=== PATIENT | female | born 1995 | race Caucasian/White ===

== ENCOUNTER 2017-02-04 22:12 | Emergency (ER) | payer OTHER ==
[2017-02-04 22:48] LABS: BASOPHILS # (AUTO) 0.1 10^3/uL (0.0-0.1); BASOPHILS % (AUTO) 0.8 %; EOSINOPHILS # (AUTO) 0.1 10^3/uL (0.0-0.7); EOSINOPHILS % (AUTO) 1.6 %; HCT - HEMATOCRIT 37.4 % (37.0-47.0); HGB - HEMOGLOBIN 13.1 g/dL (12.0-16.0); LYMPHOCYTES # (AUTO) 2.9 10^3/uL (1.5-3.5); LYMPHOCYTES % (AUTO) 35.6 %; MEAN CORPUSCULAR HGB CONC 34.9 g/dL (32.0-36.0); MEAN PLATELET VOLUME 8.2 fL (7.9-10.8); MONOCYTES # (AUTO) 0.6 10^3/uL (0.0-1.0); MONOCYTES % (AUTO) 7.1 %; NEUTROPHILS # (AUTO) 4.6 10^3/uL (1.5-6.6); NEUTROPHILS % (AUTO) 54.9 %; NUCLEATED RED BLOOD CELLS AUTO 0.1 /100WBC; RED BLOOD COUNT 4.35 10^6/uL (4.20-5.40); RED CELL DISTRIBUTION WIDTH 12.7 % (12.0-15.0); UNCORRECTED WHITE BLOOD COUNT 8.3 x10^3/uL; WHITE BLOOD COUNT 8.3 x10^3/uL (4.8-10.8)
[2017-02-04 23:00] LABS: ALBUMIN/GLOBULIN RATIO 1.6 (1.0-2.2); BILIRUBIN,TOTAL 0.5 mg/dL (0.2-1.0); CALCIUM 9.5 mg/dL (8.5-10.3); CREATININE 0.5 mg/dL (0.4-1.0); POTASSIUM 3.8 mmol/L (3.5-5.0); TOTAL PROTEIN 7.5 g/dL (6.7-8.2)
[2017-02-05 00:08] LABS: BILIRUBIN,URINE NEGATIVE (NEGATIVE); PH,URINE 6.5 PH (5.0-7.5)
[2017-02-05 00:09] VITALS: BP 121/68
[2017-02-05 00:10] LABS: UA w/ MICROSCOPIC CHARGE YES
[2017-02-05 00:11] LABS: UR CULTURE IF IND NOT INDICATED; WBC,URINE 0-3 /HPF (0-5)
--- NOTE | 2017-02-05 00:12 | Ultrasound Report ---
EXAM: FIRST TRIMESTER OBSTETRIC ULTRASOUND (Less than 11 weeks) EXAM DATE: 02/04/2017 11:38 PM. CLINICAL HISTORY: Vaginal bleeding, . LMP: Unknown. COMPARISONS: None. TECHNIQUE: Transabdominal ultrasound examination with static image documentation. CLINICAL DATES: LMP: 11/28/2016. Estimated gestational age: 9 weeks 5 days. Estimated due date: 09/04/2017. ASSESSMENT: Gestational Sac: Intrauterine gestational sac is not visualized. MATERNAL STRUCTURES: Uterus: Uterus is anteverted and anteflexed measuring 14.9 x 4.1 x 4.4 cm. Cervix: Cervix contains heterogeneous complex echogenic material measuring 5.8 x 4.6 x 2.6 cm. Endometrium: Heterogeneously thickened, measuring 17.2 mm. There is some internal vascularity. Right Ovary: Normal as visualized, without significant abnormality, measuring 3.0 x 2.9 x 2.4 cm. Left Ovary: Left ovary measures 1.9 x 1.6 11.2 cm without evident abnormality. Free Fluid: Trace fluid within physiologic limits. Other: None. IMPRESSION: 1. Intrauterine gestational sac is not visualized. No definite suspicious adnexal lesion. 2. Complex material within the cervix measuring 5.8 x 4.6 x 2.6 cm. This may represent in pr ogress. Correlation with speculum examination would be helpful. 3. Heterogeneous thickened endometrium with vascularity is nonspecific with possibility of retained p roducts of conception. One possible management option is follow-up with beta hCG if warranted. ADAIR The critical result notification system was initiated by Dr. Shweta Trujillo at 00:04 hrs on 02/05/17. The above critical findings were discussed with Dr. Perez by Dr. Shweta Trujillo at 00:08 hrs on 02/05/17. Referring Provider Line: [phone] SITE ID: [id number]
--- NOTE | 2017-02-05 00:30 | ED Physician Documentation ---
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 Patient states that today she had cramping and " a lot" of bleeding. Patient had been spotting but the bleeding increased significantly today so she came in for evaluation. Patient has not had an ultrasound to confirm location of the pregancy. Review of Systems Constitutional: denies: Fever, Chills Ears: denies: Ear pain, Drainage/discharge Nose: denies: Congestion Throat: denies: Sore throat Cardiac: denies: Chest pain / pressure Respiratory: denies: Cough GI: reports: Abdominal Pain. denies: Nausea, Vomiting, Constipation, Diarrhea : reports: Vaginal bleeding. denies: Dysuria Musculoskeletal: denies: Neck pain, Back pain Neurologic: denies: Syncope Immunocompromised: denies: Immunocompromised PD PAST MEDICAL HISTORY - Past Medical History Past Medical History: No - Past Surgical History Past Surgical History: Yes - Present Medications Home Medications: Ambulatory Orders Medication Instructions Recorded Confirmed No Known Home Medications [No 02/04/17 02/04/17 Known Home Medications] - Allergies Allergies/Adverse Reactions: Allergies Allergy/AdvReac Type Severity Reaction Status Date / Time No Known Drug Allergies Allergy Verified 02/04/17 22:19 - Social History Does the pt smoke?: No Smoking Status: Never smoker Does the pt drink ETOH?: No Does the pt have substance abuse?: No - Immunizations Immunizations are current?: Yes PD ED PE NORMAL - Vitals Vital signs reviewed: Yes - General General: Alert and oriented X 3, Well developed/nourished - HEENT HEENT: Atraumatic, PERRL - Neck Neck: Supple, no meningeal sign - Cardiac Cardiac: RRR, No murmur - Respiratory Respiratory: No respiratory distress - Abdomen Abdomen: Soft, Non distended - Female Female : Deferred - Derm Derm: Normal color, Warm and dry, No rash - Extremities Extremities: No deformity - Neuro Neuro: Alert and oriented X 3, No motor deficit, No sensory deficit, Normal speech - Psych Psych: Normal mood, Normal affect Results - Vitals Vitals: Vital Signs - 24 hr 02/04/17 02/05/17 22:18 00:08 Temperature 36.5 C Heart Rate 100 79 Respiratory 16 17 Rate Blood Pressure 131/89 H 121/68 O2 Saturation 100 99 Oxygen O2 Source Room air - Labs Labs: Laboratory Tests 02/04/17 02/04/17 02/04/17 22:38 22:38 22:38 WBC 8.3 RBC 4.35 Hgb 13.1 Hct 37.4 MCV 86.0 MCH 30.0 MCHC 34.9 RDW 12.7 Plt Count 268 MPV 8.2 Neut # 4.6 Lymph # 2.9 [place] # 0.6 Eos # 0.1 Baso # 0.1 Absolute Nucleated RBC 0.01 Nucleated RBCs 0.1 Sodium 136 Potassium 3.8 Chloride 104 Carbon Dioxide 25 Anion Gap 7.0 BUN 11 Creatinine 0.5 Estimated GFR (MDRD) 159 Glucose 106 H Calcium 9.5 Total Bilirubin 0.5 AST 23 ALT 18 Alkaline Phosphatase 43 Total Protein 7.5 Albumin 4.6 Globulin 2.9 Albumin/Globulin Ratio 1.6 Lipase 30 HCG, Quant 4398.00 Urine Color Urine Clarity Urine pH Ur Specific [place] Urine Protein Urine Glucose (UA) Urine Ketones Urine Occult Blood Urine Nitrite Urine Bilirubin Urine Urobilinogen Ur Leukocyte Esterase Urine RBC Urine WBC Ur Squamous Epith Cells Urine Bacteria Ur Microscopic Review Urine Culture Comments Blood Type 02/04/17 02/04/17 22:38 23:35 WBC RBC Hgb Hct MCV MCH MCHC RDW Plt Count MPV Neut # Lymph # [place] # Eos # Baso # Absolute Nucleated RBC Nucleated RBCs Sodium Potassium Chloride Carbon Dioxide Anion Gap BUN Creatinine Estimated GFR (MDRD) Glucose Calcium Total Bilirubin AST ALT Alkaline Phosphatase Total Protein Albumin Globulin Albumin/Globulin Ratio Lipase HCG, Quant Urine Color RED/BLOODY Urine Clarity SL. CLOUDY Urine pH 6.5 Ur Specific [place] 1.020 Urine Protein 30 H Urine Glucose (UA) NEGATIVE Urine Ketones NEGATIVE Urine Occult Blood LARGE H Urine Nitrite NEGATIVE Urine Bilirubin NEGATIVE Urine Urobilinogen 0.2 (NORMAL) Ur Leukocyte Esterase NEGATIVE Urine RBC TNTC H Urine WBC 0-3 Ur Squamous Epith Cells RARE Squamous Urine Bacteria Rare Ur Microscopic Review INDICATED Urine Culture Comments NOT INDICATED Blood Type A POSITIVE - Rads (name of study) pelvic ultrasound Radiology: Final report received (complex material in cervix, no adenexal lesion ) PD MEDICAL DECISION MAKING - ED course Complexity details: reviewed old records, reviewed results, re-evaluated patient , considered differential, d/w patient, d/w family ED course: Patient was seen and examined at bedside. IV access was gained, labs were drawn. urine was collected. imaging was ordered. When the imaging was complete the results were reviewed. Patient was actively having a miscarriage. Patient's hemoglobin and vital signs were stable. Patient had a follow up appointment in 2 days and was appropriate for discharge with close outpatient follow up. Patient was given detailed discharge and return instructions. Departure - Departure Disposition: 01 Home, Self Care Clinical Impression: Incomplete miscarriage Condition: Good Instructions: ED Miscarriage Incom, Miscarriage Dc Follow-Up: primary,ob [Other] - Within 3 Days Comments: Your symptoms today are being caused by a miscarriage. You are currently passing the products of conception and this will likely go on for the next few days. You can take motrin or tylenol as needed for cramping. You should go to your appointment with your ob on thursday to make sure it is completed. You should return to the emergency department for uncontrollable bleeding, dizziness , syncope new, worsening or uncontrollable symptoms. Discharge Date/Time: 02/05/17 00:42
== END 2017-02-05 00:42 | disposition home or self-care (01) ==
LOC: ED 22:12
DX: O03.4 Incomplete spontaneous abortion without complication (principal)
CPT/HCPCS: 36415; 76801; 80053; 81001; 81003; 83690; 84702; 85025; 86900; 86901; 87086; 99283; 99284

== ENCOUNTER 2017-10-13 11:19 | Emergency (ER) | payer OTHER ==
[2017-10-13 11:46] LABS: BILIRUBIN,URINE NEGATIVE (NEGATIVE); GLUCOSE, URINE (UA) NEGATIVE (NEGATIVE); KETONES,URINE (UA) NEGATIVE (NEGATIVE); LEUKOCYTE ESTERASE, URINE NEGATIVE (NEGATIVE); NITRITE,URINE NEGATIVE (NEGATIVE); OCCULT BLOOD,URINE NEGATIVE (NEGATIVE); PROTEIN,URINE NEGATIVE (NEGATIVE); UROBILINOGEN,URINE 0.2 (NORMAL) E.U./dL (NORMAL)
[2017-10-13 11:50] LABS: CLARITY,URINE CLEAR (CLEAR); HCG UR QUAL NEGATIVE
--- NOTE | 2017-10-13 12:20 | ED Physician Documentation ---
PD HPI SKIN - Stated complaint Stated Complaint: DIZZY - Chief complaint Chief Complaint: General - History obtained from History obtained from: Patient - History of Present Illness Timing - onset: Today (she had felt a small sharp feeling in finger yesterday when moving boxes in their spare room (recently moved). No redness at the time. Today noted a couple of small red dots on finger with mild swelling. Thought it might be a spider bite or insect. Started feeling lightheaded after noticing the stevenson and this feeling lasted for several minutes. Not feeling lightheaded now. No general rash, dyspnea, feeling of swelling in throat or chest.) Timing - details: Gradual onset (noted redness of the finger today. Had abrupt feeling of lightheaded that is resolved.) Location: RUE (side tip of right index finger.) Associated symptoms: No: Fever, Myalgias, Joint pain, Facial swelling, Dyspnea Contributing factors: Insect bite /sting (she thinks possibly, when lifting boxes yesterday (moving boxes in spare room).) Similar symptoms before: Has not had sx before Recently seen: Not recently seen Review of Systems Constitutional: denies: Fever, Chills, Myalgias Cardiac: denies: Chest pain / pressure Respiratory: denies: Dyspnea, Cough, Wheezing GI: denies: Nausea, Vomiting : denies: Irregular menses, Missed period Skin: denies: Rash (not general, just with some redness of finger tip and 2 red dots.) PD PAST MEDICAL HISTORY - Past Medical History Past Medical History: No Cardiovascular: None Neuro: None Endocrine/Autoimmune: None - Past Surgical History Past Surgical History: Yes /REAL ESTATE PARALEGAL: Dilation and currettage - Present Medications Home Medications: Ambulatory Orders Medication Instructions Recorded Confirmed Norethindrone-E.estradiol-Iron 1 tab PO DAILY 10/13/17 [Microgestin Fe 1-20 Tablet] - Allergies Allergies/Adverse Reactions: Allergies Allergy/AdvReac Type Severity Reaction Status Date / Time No Known Drug Allergies Allergy Verified 10/13/17 11:24 - Social History Does the pt smoke?: No Smoking Status: Never smoker Does the pt drink ETOH?: No Does the pt have substance abuse?: No - Immunizations Immunizations are current?: Yes PD ED PE NORMAL - Vitals Vital signs reviewed: Yes - General General: Alert and oriented X 3, No acute distress, Well developed/nourished - HEENT HEENT: Pharynx benign - Neck Neck: Supple, no meningeal sign, No adenopathy - Cardiac Cardiac: RRR, No murmur, No rub - Respiratory Respiratory: No respiratory distress, Clear bilaterally - Abdomen Abdomen: Soft, Non tender - Derm Derm: Normal color, Warm and dry, Other (right index finger tip on side with 2 red dots and mild redness around. No red streaking. Mildly tender. ) - Neuro Neuro: Alert and oriented X 3, technical inspector 2-12 intact, No motor deficit, No sensory deficit, Normal speech Results - Vitals Vitals: Oxygen O2 Source Room air - Labs Labs: Laboratory Tests 10/13/17 10/13/17 11:40 11:40 Urine Color YELLOW Urine Clarity CLEAR Urine pH 8.0 H Ur Specific [place] 1.015 1.015 Urine Protein NEGATIVE Urine Glucose (UA) NEGATIVE Urine Ketones NEGATIVE Urine Occult Blood NEGATIVE Urine Nitrite NEGATIVE Urine Bilirubin NEGATIVE Urine Urobilinogen 0.2 (NORMAL) Ur Leukocyte Esterase NEGATIVE Ur Microscopic Review NOT INDICATED Urine Culture Comments NOT INDICATED Urine HCG, Qual NEGATIVE PD MEDICAL DECISION MAKING - ED course Complexity details: considered differential (the red spots on the finger could represent spider bite but may also be inflammation from scrape or plant, etc. Does not appear infectious per se, but would see if progresses. Her lightheadedness might be reaction or venom effect, but seems likely more vasovagal or psychogenic. ), d/w patient Departure - Departure Disposition: 01 Home, Self Care Clinical Impression: Rash and nonspecific skin eruption, Light-headed feeling Condition: Stable Record reviewed to determine appropriate education?: Yes Instructions: ED Bite Sting Insect Local Allergic React Follow-Up: DIEGO Foreman [Provider Group] Comments: The stevenson on the finger may be an insect bite. Consider possible spider and if so he may get a local reaction of redness and inflammation. I presume the lightheadedness is related to it. You are not having a general allergic reaction and so I would not expect any dangerous symptoms. Drink lots of fluids and see how you do with this skin rash over the next few days. Discharge Date/Time: 10/13/17 12:34
[2017-10-13 12:31] VITALS: BP 116/69
== END 2017-10-13 12:34 | disposition home or self-care (01) ==
LOC: ED 11:19
DX: R21 Rash and other nonspecific skin eruption (principal); R42 Dizziness and giddiness
CPT/HCPCS: 81001; 81003; 81025; 87086; 99283

== ENCOUNTER 2019-08-28 01:02 | Emergency (ER) | payer OTHER ==
--- NOTE | 2019-08-28 01:33 | ED Physician Documentation ---
History of Present Illness - Stated complaint Stated Complaint: BLEEDING - Chief complaint Chief Complaint: Abd Pain - Additonal information Additional information: This is a G4, female 18 weeks with a confirmed intrauterine from past ultrasound, who follows with Dr. Brar at the [facility], who presents with vaginal bleeding. Patient states that she has had some mild cramping throughout her , and she did have some mild cramping tonight as well, but no increased abdominal pain from her baseline. She noticed a small amount of blood when she went to the bathroom, she states is just enough to coat the inside of her underwear. This was concerning to her given that she has had a past miscarriage, so she sought evaluation tonight. She denies fever or dysuria. She does not know her blood type. Review of Systems Constitutional: denies: Fever Cardiac: denies: Chest pain / pressure Respiratory: denies: Dyspnea : reports: Vaginal bleeding. 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 - Present Medications Home Medications: Ambulatory Orders Medication Instructions Recorded Confirmed Norethindrone-E.estradiol-Iron 1 tab PO DAILY 10/13/17 08/28/19 [Microgestin Fe 1-20 Tablet] - Allergies Allergies/Adverse Reactions: Allergies Allergy/AdvReac Type Severity Reaction Status Date / Time No Known Drug Allergies Allergy Verified 08/28/19 01:11 - Social History Does the pt smoke?: No Smoking Status: Never smoker Does the pt drink ETOH?: No Does the pt have substance abuse?: No - Immunizations Immunizations are current?: Yes - POLST Patient has POLST: No PD ED PE NORMAL - Vitals Vital signs reviewed: Yes - General General: Alert and oriented X 3, No acute distress - HEENT HEENT: PERRL - Neck Neck: Supple, no meningeal sign - Cardiac Cardiac: RRR, No murmur - Respiratory Respiratory: Clear bilaterally - Abdomen Abdomen: Normal bowel sounds, Soft, Non tender, Other (Gravid, fundal height below umbilicus) - Derm Derm: Warm and dry - Extremities Extremities: No deformity - Neuro Neuro: Alert and oriented X 3 - Psych Psych: Normal mood, Normal affect Results - Vitals Vitals: Vital Signs - 24 hr 08/28/19 08/28/19 08/28/19 01:05 03:26 03:41 Temperature 36.8 C 36.8 C Heart Rate 93 85 92 Respiratory 16 18 16 Rate Blood Pressure 124/77 121/71 117/62 O2 Saturation 100 98 99 Oxygen O2 Source Room air - Labs Labs: Laboratory Tests 08/28/19 08/28/19 08/28/19 01:20 01:45 01:45 WBC 10.9 H RBC 3.94 L Hgb 11.8 L Hct 34.2 L MCV 86.8 MCH 29.9 MCHC 34.5 RDW 12.9 Plt Count 256 MPV 9.5 Neut # (Auto) 7.4 H Lymph # (Auto) 2.7 [place] # (Auto) 0.6 Eos # (Auto) 0.2 Baso # (Auto) 0.0 Absolute Nucleated RBC 0.00 Nucleated RBC % 0.0 Sodium 135 Potassium 3.4 L Chloride 103 Carbon Dioxide 25 Anion Gap 7.0 BUN 13 Creatinine 0.5 Estimated GFR (MDRD) 154 Glucose 96 Calcium 9.3 Total Bilirubin 0.5 AST 23 ALT 20 Alkaline Phosphatase 41 L Total Protein 7.4 Albumin 3.6 Globulin 3.8 Albumin/Globulin Ratio 0.9 L Lipase 35 Urine Color YELLOW Urine Clarity CLEAR Urine pH 6.5 Ur Specific [place] 1.015 Urine Protein NEGATIVE Urine Glucose (UA) NEGATIVE Urine Ketones NEGATIVE Urine Occult Blood SMALL H Urine Nitrite NEGATIVE Urine Bilirubin NEGATIVE Urine Urobilinogen 0.2 (NORMAL) Ur Leukocyte Esterase NEGATIVE Urine RBC 0-5 Urine WBC 0-3 Ur Squamous Epith Cells FEW Squamous Urine Bacteria Rare Ur Microscopic Review INDICATED Urine Culture Comments NOT INDICATED Blood Type 08/28/19 01:45 WBC RBC Hgb Hct MCV MCH MCHC RDW Plt Count MPV Neut # (Auto) Lymph # (Auto) [place] # (Auto) Eos # (Auto) Baso # (Auto) Absolute Nucleated RBC Nucleated RBC % Sodium Potassium Chloride Carbon Dioxide Anion Gap BUN Creatinine Estimated GFR (MDRD) Glucose Calcium Total Bilirubin AST ALT Alkaline Phosphatase Total Protein Albumin Globulin Albumin/Globulin Ratio Lipase Urine Color Urine Clarity Urine pH Ur Specific [place] Urine Protein Urine Glucose (UA) Urine Ketones Urine Occult Blood Urine Nitrite Urine Bilirubin Urine Urobilinogen Ur Leukocyte Esterase Urine RBC Urine WBC Ur Squamous Epith Cells Urine Bacteria Ur Microscopic Review Urine Culture Comments Blood Type A POSITIVE - Rads (name of study) US OB Radiology: Other (Single live intrauterine with a normal heart rate and gestational age of 18 weeks and 2 days. No acute abnormality seen.) PD MEDICAL DECISION MAKING - ED course ED course: Patient is well-appearing on arrival, abdomen is is nontender and benign. Labs show a slight leukocytosis which is within normal normal for at 10.9, and a mild anemia which is also within the realm of normal for . Abdominal panel is unremarkable. Her urine is negative for infection. A OB ultrasound is performed and shows single live without acute abnormality. Her blood type is A+. I offered a pelvic exam with the patient, she has a OB appointment on Thursday and would prefer to defer this till then. I feel this is reasonable given that she is not having any active bleeding at this time and has a benign abdomen. I discussed that she has a threatened miscarriage I recommended pelvic rest and supportive care and close OB follow-up. I also reviewed return precautions with the patient. She agrees, and she was discharged home in the care of her partner. Departure - Departure Disposition: Home, Self Care Clinical Impression: Threatened miscarriage Condition: Good Instructions: ED Miscarriage Poss Follow-Up: Your,OB [Other] (Call Thursday for next available appt) Comments: Your blood type is A+. Your labs today are reassuring, and the ultrasound shows a viable fetus. Bleeding during is called a threatened miscarriage: you may go on to have a normal or this may progress to a miscarriage. You may take Tylenol for any cramping. Please follow-up with your OB provider as soon as possible. I recommend that you observe pelvic rest (no sex or anything in the vagina) until you see your OB and discuss this further. If you developing worsening symptoms such as severe abdominal pain, persistent vomiting, or fever, return to the emergency department.
[2019-08-28 01:36] LABS: BILIRUBIN,URINE NEGATIVE (NEGATIVE); GLUCOSE, URINE (UA) NEGATIVE (NEGATIVE); KETONES,URINE (UA) NEGATIVE (NEGATIVE); LEUKOCYTE ESTERASE, URINE NEGATIVE (NEGATIVE); NITRITE,URINE NEGATIVE (NEGATIVE); OCCULT BLOOD,URINE SMALL (NEGATIVE); PH,URINE 6.5 PH (5.0-7.5); PROTEIN,URINE NEGATIVE (NEGATIVE); UROBILINOGEN,URINE 0.2 (NORMAL) E.U./dL (NORMAL)
[2019-08-28 01:52] LABS: BACTERIA,URINE Rare /HPF (None Seen); CLARITY,URINE CLEAR (CLEAR); RBC,URINE 0-5 /HPF (0-5); SQUAMOUS EPITHELIAL CELL,UR FEW Squamous (<= Few)
[2019-08-28 01:56] LABS: BASOPHILS % (AUTO) 0.4 %; EOSINOPHILS # (AUTO) 0.2 10^3/uL (0.0-0.7); EOSINOPHILS % (AUTO) 1.4 %; HGB - HEMOGLOBIN 11.8 g/dL (12.0-16.0); LYMPHOCYTES # (AUTO) 2.7 10^3/uL (1.5-3.5); MEAN CORPUSCULAR HEMOGLOBIN 29.9 pg (27.0-31.0); MEAN CORPUSCULAR HGB CONC 34.5 g/dL (32.0-36.0); MEAN CORPUSCULAR VOLUME 86.8 fL (81.0-99.0); MEAN PLATELET VOLUME 9.5 fL (7.9-10.8); MONOCYTES # (AUTO) 0.6 10^3/uL (0.0-1.0); MONOCYTES % (AUTO) 5.1 %; NEUTROPHILS # (AUTO) 7.4 10^3/uL (1.5-6.6); NEUTROPHILS % (AUTO) 67.6 %; PLT - PLATELET COUNT 256 10^3/uL (130-450); RED BLOOD COUNT 3.94 10^6/uL (4.20-5.40); RED CELL DISTRIBUTION WIDTH 12.9 % (12.0-15.0); WHITE BLOOD COUNT 10.9 x10^3/uL (4.8-10.8)
[2019-08-28 02:09] LABS: ALBUMIN 3.6 g/dL (3.2-5.5); ALBUMIN/GLOBULIN RATIO 0.9 (1.0-2.2); BILIRUBIN,TOTAL 0.5 mg/dL (0.2-1.0); CALCIUM 9.3 mg/dL (8.5-10.3); CREATININE 0.5 mg/dL (0.4-1.0); TOTAL PROTEIN 7.4 g/dL (6.7-8.2)
--- NOTE | 2019-08-28 03:24 | Ultrasound Report ---
Reason: bleeding, 18 wk Procedure Date: 08/28/2019 Accession Number: [id number] / [id number] Procedure: US - OB Limited CPT Code: Final Report FULL RESULT: EXAM: LIMITED OBSTETRICAL ULTRASOUND EXAM DATE: 08/28/2019 02:34 AM CLINICAL HISTORY: Bleeding, 18 weeks. COMPARISON: None. TECHNIQUE: Real-time sonographic evaluation of the fetus performed by the sr. vendor management associate. Multiple front desk representative static images were saved for review. FINDINGS: DATING: Established EGA 18 weeks 2 days with RAYSA 01/27/2020. GENERAL EVALUATION [place] . Cardiac activity: 149 bpm. movement: Visualized. Presentation: Cephalic. Placenta: Posterior position appears grossly unremarkable. Amniotic fluid: Normal. FRANSISCO 16 cm. MVP 5 cm. ANATOMY Not performed. Cervix: Closed at 4.4 cm. IMPRESSION: 1. Lamas live intrauterine with gestational age 18 weeks 2 days based on established RAYSA of 01/27/2020. 2. No acute abnormality seen. 3. Follow-up suggested before 22 weeks for the second trimester anatomy scan. RADIA
[2019-08-28 03:42] VITALS: BP 117/62
== END 2019-08-28 03:42 | disposition home or self-care (01) ==
LOC: ED 01:02
DX: O20.0 Threatened abortion (principal); Z3A.18 18 weeks gestation of pregnancy
CPT/HCPCS: 36415; 76815; 80053; 81001; 81003; 83690; 85025; 86900; 86901; 87086; 99284

== ENCOUNTER 2019-10-16 21:34 | Outpatient (CLI) | payer OTHER ==
[2019-10-16 23:44] VITALS: BP 112/67
--- NOTE | 2019-10-19 13:46 | PROCEDURE REPORT ---
- HPI Diagnosis/Indication for NST: Decreased movement Current EDU 01/27/20 Gestation 25 Weeks and 2 Days 3 Para 0 Vital Signs Temperature 97.7 F 10/16/19 21:47 Heart Rate 82 10/16/19 21:47 Respiratory Rate 18 10/16/19 21:47 Blood Pressure 112/67 10/16/19 21:47 O2 Saturation 100 10/16/19 21:47 Temperature 97.7 F 10/16/19 21:47 Heart Rate 82 10/16/19 21:47 Respiratory Rate 18 10/16/19 21:47 Blood Pressure 112/67 10/16/19 21:47 O2 Saturation 100 10/16/19 21:47 - Results and Plan Findings/Impression: Category 1 NST [place] neg
== END 2019-10-16 23:09 | disposition home or self-care (01) ==
LOC: WFO 21:34 → FBP 21:36 → WFO 23:09
PROVIDERS: ATTEND Obstetrics & Gynecology
DX: O36.8120 Decreased fetal movements, second trimester, not applicable or unspecified (principal); Z3A.25 25 weeks gestation of pregnancy
CPT/HCPCS: 99212

== ENCOUNTER 2019-12-28 07:00 | Outpatient (CLI) | payer OTHER ==
[2019-12-28 18:12] LABS: CREATININE 0.5 mg/dL (0.4-1.0); CREATININE,URINE 53.5 mg/dL; MICROALBUMIN,URINE 0.8 mg/dL (0-300.0); URIC ACID 4.4 mg/dL (2.6-7.2)
[2019-12-28 18:56] LABS: BILIRUBIN,URINE NEGATIVE (NEGATIVE); GLUCOSE, URINE (UA) NEGATIVE (NEGATIVE); KETONES,URINE (UA) NEGATIVE (NEGATIVE); LEUKOCYTE ESTERASE, URINE NEGATIVE (NEGATIVE); NITRITE,URINE NEGATIVE (NEGATIVE); OCCULT BLOOD,URINE NEGATIVE (NEGATIVE); PROTEIN,URINE NEGATIVE (NEGATIVE); UROBILINOGEN,URINE 0.2 (NORMAL) E.U./dL (NORMAL)
[2019-12-28 18:58] LABS: CLARITY,URINE CLEAR (CLEAR)
== END 2019-12-28 23:59 | disposition home or self-care (01) ==
LOC: LAB.WCP 07:00
PROVIDERS: ATTEND Advanced Practice Midwife
DX: Z34.90 Encounter for supervision of normal pregnancy, unspecified, unspecified trimester (principal)
CPT/HCPCS: 36415; 81001; 81003; 82043; 82565; 82570; 83615; 83721; 84450; 84550; 87086

== ENCOUNTER 2019-12-28 08:00 | Outpatient (CLI) | payer OTHER ==
[2019-12-28 21:45] LABS: TRICHOMONAS VAGINALIS DNA NEGATIVE (NEGATIVE)
== END 2019-12-28 23:59 | disposition home or self-care (01) ==
LOC: LAB.R 08:00
PROVIDERS: ATTEND Advanced Practice Midwife
DX: Z34.90 Encounter for supervision of normal pregnancy, unspecified, unspecified trimester (principal)
CPT/HCPCS: 87491; 87591; 87661; 87797

== ENCOUNTER 2020-01-01 15:01 | Outpatient (CLI) | payer OTHER ==
[2020-01-01 16:18] VITALS: BP 112/64
--- NOTE | 2020-01-01 16:37 | PROVIDER PROGRESS NOTE ---
- HPI Chief Complaint: Other (24yo at 36 1/7 weeks presents w c/o visual "static". Feels she is seeing a haze in front of her eyes; this is usually followed by a headache (has h/o infrequent migraines that follow this pattern). No headache now. No other complaints. Active fetus. Feeling very well.) Current : Current EDU 01/27/20 Gestation 36 Weeks and 2 Days 3 Para 0 Vital Signs Temperature 98.6 F 01/01/20 15:27 Heart Rate 64 01/01/20 15:27 Respiratory Rate 18 01/01/20 15:27 Blood Pressure 112/69 01/01/20 15:27 O2 Saturation 99 01/01/20 15:27 Temperature 98.6 F 01/01/20 15:27 Heart Rate 64 01/01/20 15:27 Respiratory Rate 18 01/01/20 15:27 Blood Pressure 112/64 01/01/20 16:00 O2 Saturation 99 01/01/20 15:27 - Procedures OB Procedure Performed: NST (Reactive, category 1) Service Date of procedure: 01/01/20 Findings: Serial BP's done 100-120/60's Abd non-tender. No contractions. - Plan Plan: Reassured. Recommended tylenol and caffeine if she should get a headache and to call if it is not resolved. F/U as scheduled in 3 days w primary OB provider. Recommended moxibustion to turn baby which was noted to be breech at last OB visit.
== END 2020-01-01 16:16 | disposition home or self-care (01) ==
LOC: WFO 15:01 → FBP 15:04 → WFO 16:16
PROVIDERS: ATTEND Obstetrics & Gynecology
DX: O99.89 Other specified diseases and conditions complicating pregnancy, childbirth and the puerperium (principal); Z3A.36 36 weeks gestation of pregnancy; H53.8 Other visual disturbances
CPT/HCPCS: 99213

== ENCOUNTER 2020-01-09 10:00 | Outpatient (CLI) | payer OTHER ==
[2020-01-09] MEDS ORDERED: TERBUTALINE 1 MG/ML VIAL SUBQ ONE ×2 (10:23→10:48)
[2020-01-09] MEDS ORDERED: ONDANSETRON 4 MG/2 ML VIAL IVP ONE (10:48)
[2020-01-09] MEDS ORDERED: SODIUM CHLORIDE FLUSH 0.9% 10 ML SYRINGE IVP PRN (10:48)
[2020-01-09] MEDS ORDERED: fentaNYL 100 MCG/2 ML VIAL IVP ONE (10:48)
--- NOTE | 2020-01-09 13:15 | Ultrasound Report ---
Reason: External version- assess fluid and placenta Procedure Date: 01/09/2020 Accession Number: [id number] / [id number] Procedure: US - OB Limited CPT Code: Final Report FULL RESULT: EXAM: LIMITED OBSTETRICAL ULTRASOUND EXAM DATE: 01/09/2020 11:59 AM. CLINICAL HISTORY: External version- assess fluid and placenta. COMPARISON: OB 14+ WEEKS 08/28/2019 2:34 AM. TECHNIQUE: Real-time sonographic evaluation of the fetus performed by the supervisor fish processing. Multiple strategic partnership representative static images were saved for review. Additional transvaginal imaging to more accurately evaluate cervical length/placental position/etc. DATING: Established EGA 37 weeks 3 days with RAYSA 01/27/2020. GENERAL EVALUATION [place] . Cardiac activity: 160 bpm. Presentation: Breech. Placenta: Posterior position. Amniotic fluid: Normal. FRANSISCO 12.5 cm. MVP 3.8 cm. Umbilical CORD: Draped across the neck. ANATOMY Not assessed. MATERNAL STRUCTURES Cervix not visualized transabdominally. IMPRESSION: 1. Lamas live intrauterine in breech position with gestational age 37 weeks 3 days based on established RAYSA. 2. Normal amniotic fluid volume with FRANSISCO 12.5. 3. Posterior placenta. 4. Umbilical cord draped across the neck. RADIA
[2020-01-09] MEDS ORDERED: LACTATED RINGERS 0 ML IV ONE (14:06)
[2020-01-09] MEDS ORDERED: MINERAL OIL LIGHT 10 ML MC ONE (14:08)
[2020-01-09 16:10] VITALS: BP 120/67
--- NOTE | 2020-01-09 16:43 | PROVIDER PROGRESS NOTE ---
- HPI Chief Complaint: Other (Attempted external cephalic version) Current : Current EDU 01/27/20 Gestation 37 Weeks and 3 Days 3 Para 0 Vital Signs Temperature 98.6 F 01/09/20 13:21 Heart Rate 81 01/09/20 13:21 Respiratory Rate 16 01/09/20 13:21 Blood Pressure 112/73 01/09/20 13:21 O2 Saturation 99 01/09/20 13:21 Temperature 98.6 F 01/09/20 13:21 Heart Rate 103 H 01/09/20 15:09 Respiratory Rate 20 01/09/20 15:09 Blood Pressure 120/67 01/09/20 15:09 O2 Saturation 99 01/09/20 15:09 - Exam GEN: NAD HEET: NCAT CV: RR RES: nl effort ABD: gravid, S&NT. head palpable in LUQ EXT: WWP Formal US ordered. FRANSISCO 12.5 Umbilical cord "draped across neck" EFM 135 mod radha 15x15 accels no decels TOCO; Quiet - Procedures NST Procedure: NST Procedure Start Date 01/09/20 Start Time 14:21 Stop Time 15:22 Vibroacoustic Stimulation Used Yes Patient States Movement Yes Service Date of procedure: 01/09/20 Procedure Details: Cat I tracing Failed ECV. See procedure note Findings: 24 yo at 37+3 wga here for attempted ECV Cat I tracing Reviewed us and possibility of nuchal cord R/B/A reviewed Patient underwent attempt at ECV. head moved 90 degrees in either direction before heart tones dropped to the 90s intolerance of ECV; likely due to strain on presumed nuchal cord - Plan Plan: Failed ECV Will proceed with primary at 39 wga; requested OR for 01/20/2020 Written informed consent was obtained Confirmed patient to be Rh positive. EFM continued for one hour post-ECV attempt; Cat I tracing.
--- NOTE | 2020-01-09 16:58 | PROCEDURE REPORT ---
Hospitalist Procedure Note - Procedure Note Procedure Note: PREOP DX: IUP at 37w3d Confirmed breech presentation POST OP DX: Same and suspected nuchal cord PROCEDURE: Attempted external cephalic version COMPLICATIONS: none INDICATIONS: Patient is a 24-year-old G3, P0 at 37 weeks 3 days estimated gestational age with fetus in breech presentation. Bedside ultrasound was performed but FRANSISCO was not clearly ascertained. A formal ultrasound was ordered which showed posterior placenta, FRANSISCO of 12.5, fetus in breech presentation. Formal ultrasound also indicated presence of a umbilical cord draped across the neck. Could not confirm presence of nuchal cord.Patient indicated desire for attempted external cephalic version in hopes of avoiding primary . Risks/benefits/alternatives were reviewed, including risk of abruption, rupture of membranes, terminal bradycardia, and failure of procedure. Written informed consent was obtained. PROCEDURE: After written informed consent was obtained and NST was confirmed to be category 1, patient was placed in supine presentation. She received terbutaline 0.25 mg SQ prior to procedure and fentanyl 50 mcg IV x1 for pain management. Mineral oil was applied to the maternal abdomen. Breech was disengaged from the pelvis by slowly inserting fingertips deeply behind the pubic symphysis and scooping the out of the pelvis. While lifting the fetus out of the pelvis head was manipulated forward into a forward roll. head would proceed forward about 90 degrees from the midline when heart rate would start to drop to the 90s. Bradycardia was relieved by manipulating head back to the midline, into the original position. A backward roll was attempted in the opposite direction, again reaching abot 90 degrees from original position valarie heart tones would drop and further forward manipulation was impeded. A third attempt was made in the forward roll direction, again meeting resistance and 90 degrees of displacement accompanied with bradycardia. Attempt at version was discontinued. heart rate recovered once position was restored to its starting position at the midline. EFM was continued for one hour. Cat i tracing was noted. Patient was discharge to home after undergoing written, informed consent for low transverse with plan to proceed with delivery via on 01/20/20 at 39 wga.
== END 2020-01-09 15:45 | disposition home or self-care (01) ==
LOC: WFO 10:00 → FBP 10:04 → WFO 15:45
PROVIDERS: ATTEND Obstetrics & Gynecology
DX: O32.1XX0 Maternal care for breech presentation, not applicable or unspecified (principal); Z3A.37 37 weeks gestation of pregnancy; O36.8330 Maternal care for abnormalities of the fetal heart rate or rhythm, third trimester, not applicable or unspecified
CPT/HCPCS: 76815; 96372; 96374

== ENCOUNTER 2020-01-12 14:02 | Outpatient (CLI) | payer OTHER ==
[2020-01-12 14:09] VITALS: BP 126/72
--- NOTE | 2020-01-12 16:25 | Labor Flowsheet ---
Labor Flowsheet Datetime Report Generated by CPN: 01/12/2020 16:25 Datetime: 01/12/2020 15:54 Pulse: 74 SpO2 (%): 100 LaborFlag: Labor Datetime: 01/12/2020 15:42 COMMUNICATION Communication: Provider at Bedside Datetime: 01/12/2020 14:03 Stage of : Labor VITAL SIGNS NBP Sys/Pamela/Mean (mmHg): 126 : 72 : 84 Datetime: 01/09/2020 14:26 Communication Comments: Dr.McSorley at bedside to consent for csection Datetime: 01/09/2020 14:16 Comments: FHR 120s-130s when pressure relieved from version attempt Datetime: 01/09/2020 14:12 ASSESSMENT A Monitor Mode: External US Datetime: 01/09/2020 14:09 Analgesics/Sedatives: Fentanyl (mcg) @ 50 Datetime: 01/09/2020 14:05 MEDICATIONS Tocolytics: Terbutaline 0.25mg Subcutaneous Datetime: 01/09/2020 13:51 Provider Notified (Name): Dr.McSorley Datetime: 01/09/2020 11:23 PATIENT CARE I/O Interventions: Up to BR Datetime: 01/09/2020 11:03 Notification Reason: Other Datetime: 01/09/2020 10:22 Respirations: 18 Temperature (C): 36.9
--- NOTE | 2020-01-12 18:44 | PREOP HISTORY & PHYSICAL ---
DATE OF SERVICE: 01/12/2020 Physician: Isaiah Parra MD IDENTIFICATION: The patient is a 24-year-old, G3, P0, AB2 female whose EDC is 01/27/2020. This makes her 37 weeks EGA. CHIEF COMPLAINT: Striking her abdomen. HISTORY OF PRESENT ILLNESS: The patient states that while arising from the table she struck her abdo men, particularly in the left upper quadrant. She is already known to be breech in presentation with the head in the right upper quadrant. She is A positive. The placenta on previous ultrasound is no juan to be posterior. She denies any bleeding. Has noted some mild cramping. Has noted some mild ri ght upper quadrant tenderness. She has noted continued good motion. She has been placed on th e monitor and she has shown evidence of reactive strip with minimal infrequent contractions. The pat ient has been seen regularly throughout her . PAST MEDICAL HISTORY: She denies any hypertensive, diabetic, cardiac or pulmonary disease. PAST SURGICAL HISTORY: Positive for having some moles and a left breast biopsy. ALLERGIES: NONE KNOWN. CURRENT MEDICATIONS: vitamins. HABITS: The patient denies use of alcohol, tobacco, street or addictive drugs or tetrahydrocannabino l. 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 She has received some college educ ation at this time. PHYSICAL EXAMINATION GENERAL: The patient is a well-developed, well-nourished white female. She is in no acute distress. VITAL SIGNS: Temperature is 37.2, her blood pressure 126/72. Respirations are 17. Saturation is 10 0%. Pulse is 86. HEENT: Pupils are equal and round. Extraocular muscles are intact. CARDIOVASCULAR: Regular rate and rhythm without murmurs. LUNGS: Lung tony are clear without rales or wheezes. ABDOMEN: Gravid. There is a palpable head in the left upper quadrant. There is no bruising over th is area. There is some minimal tenderness. There is good motion noted. The heart strip shows evidence of excellent reactivity at this time. The patient is about to undergo an ultrasound. IMPRESSION 1. A 24-year-old, G3, P0, AB2 female at 37 weeks EGA. 2. Patient struck her abdomen. 3. Placenta is posterior in location, reactive NST without bleeding or cramping. PLAN: We will obtain ultrasound to ascertain any evidence of any retro-amniotic bleeding. If this i s normal, we will allow the patient to go home with caution regarding bleeding, motion, as well as contractions. She is scheduled for a to be performed next Thursday. TD: 01/12/2020 16:10
--- NOTE | 2020-01-12 19:03 | Ultrasound Report ---
Reason: possible abruption Procedure Date: 01/12/2020 Accession Number: [id number] / [id number] Procedure: US - OB Limited CPT Code: Final Report FULL RESULT: EXAM: LIMITED OBSTETRICAL ULTRASOUND EXAM DATE: 01/12/2020 04:23 PM. CLINICAL HISTORY: 24-year-old female. Hit abdomen against a table and has pain. Possible abruption. COMPARISON: OB LIMITED 01/09/2020 11:29 AM OB 14+ WEEKS 08/28/2019 2:34 AM. TECHNIQUE: Real-time sonographic evaluation of the fetus performed by the contract attorney. Multiple patient intake representative static images were saved for review. DATING: Established EGA 37 weeks 6 days with RAYSA 01/27/2020. GENERAL EVALUATION Lamas . Cardiac activity: 145 bpm. Presentation: Breech. Placenta: Posterior position. Grade 2. No evidence of hemorrhage. Amniotic fluid: Normal. FRANSISCO 14.8 cm. MVP 6.0 cm. ANATOMY Not assessed. MATERNAL STRUCTURES Not assessed. IMPRESSION: 1. Lamas live intrauterine in breech position with gestational age 37 weeks 6 days based on established RAYSA. 2. Posterior placenta without evidence of hemorrhage. 3. Normal amniotic fluid volume. RADIA
== END 2020-01-12 16:25 | disposition home or self-care (01) ==
LOC: WFO 14:02 → FBP 14:03 → WFO 16:25
PROVIDERS: ATTEND Obstetrics & Gynecology
DX: O9A.213 Injury, poisoning and certain other consequences of external causes complicating pregnancy, third trimester (principal); W22.8XXA Striking against or struck by other objects, initial encounter; Z3A.37 37 weeks gestation of pregnancy
CPT/HCPCS: 76815; 99214

== ENCOUNTER 2020-01-17 08:35 | Outpatient (CLI) | payer OTHER | END 2020-01-17 23:59 | disposition home or self-care (01) | LOC: LAB.R 08:35 | PROVIDERS: ATTEND Obstetrics & Gynecology | DX: Z34.90 Encounter for supervision of normal pregnancy, unspecified, unspecified trimester (principal); Z11.59 Encounter for screening for other viral diseases | CPT/HCPCS: 81599 ==

== ENCOUNTER 2020-01-20 06:25 | Inpatient (IN) | payer OTHER ==
--- NOTE | 2020-01-19 23:26 | HISTORY & PHYSICAL EXAMINATION ---
HPI - Admitted From Admitted from: Direct admit - History Obtained From Records Reviewed: Old records reviewed History obtained from: Patient - History of Present Illness HPI Comment/Other: Patient is a 24-year-old G3, P0 at 39 weeks 0 days estimated gestational age with RAYSA of 01/27/2020 here for scheduled primary low transverse due to breech presentation. has been generally uncomplicated.Patient underwent an attempt at external cephalic version without success. Risks benefits alternatives to primary low transverse had been discussed shortly after the ECV, and written informed consent was obtained. No changes in health history since prior exam. Endorses movement. Denies loss of fluid/contractions/vaginal bleeding. LMP 04/22/2019 Initial U/S: 07/04/2019 @ 10.3wks gestation c/w LMP dating A pos/Rubella immune Genetic testing: Serum integrated screen neg- CF neg FAS WNL 09/09/2019 posterior placenta, no previa. 3VC. Size c/w dating. Glucola 101 TDAP - received at [facility] GBS & GC/CT neg HSV: denies Breast pump Rx previously provided MOD: LTCS Expecting a girl- Nesha; Partner - Denis harris contraception: ortho micronor PMH/PSH - Past Medical History Cardiovascular: positive: None Endocrine/Autoimmune: positive: None MRSA Hx?: No - Past Surgical History /[employer]: positive: Dilation and currettage Social & Family Hx - Social History Does the pt smoke?: No Smoking Status: Never smoker Does the pt drink ETOH?: No Does the pt have substance abuse?: No - POLST Patient has POLST: No Meds/Allgy - Home Medications Home Medications: Ambulatory Orders Medication Instructions Recorded Confirmed Norethindrone-E.estradiol-Iron 1 tab PO DAILY 10/13/17 08/28/19 [Microgestin Fe 1-20 Tablet] - Allergies Allergies/Adverse Reactions: Allergies Allergy/AdvReac Type Severity Reaction Status Date / Time No Known Drug Allergies Allergy Verified 08/28/19 01:11 Review of Systems - Other Findings Other Findings: As per HPI otherwise remaining systems are negative. Exam - Physical Exam General Appearance: positive: No acute distress Neck: positive: Nml inspection Respiratory: positive: No respiratory distress Cardiovascular: positive: Other (RR) Abdomen: positive: Non-tender, Other (Gravid, S&NT. head in epigastric area) Neurologic/Psychiatric: positive: Oriented x3 Comments/Other: Bedside US confirmed breech position Impression/Plan - Problem List Problem List: Patient is a 24-year-old G3, P0 at 39 weeks 0 days estimated gestational age who presents for primary low transverse for breech presentation. -Cat I tracing -Confirmed breech via bedside us Written informed consent has been obtained. -Cefazolin 2 g IV on-call to the OR -Bicitra prior to procedure -Admit to inpatient care.
[~2020-01-20 06:25] MED LIST: LACTATED RINGERS 1,000 ML IV SCH; SODIUM CHLORIDE FLUSH 0.9% 10 ML SYRINGE IVP PRN
[2020-01-20] MEDS ORDERED: SODIUM CHLORIDE FLUSH 0.9% 10 ML SYRINGE IVP SCH ×2 (06:30→17:00)
[2020-01-20] MEDS ORDERED: ceFAZolin 2 GM in SODIUM CHLORIDE 0.9% 100ML 100 ML IV ONE (06:30)
[2020-01-20] MEDS ORDERED: LIDOCAINE 1%-EPI 1:100000 20 ML MDV ONE (07:07)
--- NOTE | 2020-01-20 07:26 | ANESTHESIA ---
Pre-Anesthesia VS, & Labs - Diagnosis section for breech presentation - Procedure section Vital Signs: Temp Pulse Resp BP Pulse Ox 37.1 C 84 18 126/84 H 100 01/20/20 06:45 01/20/20 06:45 01/20/20 06:45 01/20/20 06:45 01/20/20 06:45 Height 5 ft Weight (kg) 77.111 kg Body Mass Index 26.9 - NPO >8 hours - Is Patient ?: Yes Home Medications and Allergies Active Medications Acetaminophen (Ofirmev) 100 mls @ 400 mls/hr IV Q6H SUDHAKAR Lactated Ringer's (Lr) 1,000 mls @ 0 mls/hr IV .Q0M SUDHAKAR Last Admin: 01/20/20 07:19 Dose: 30 mls/hr Sodium Chloride (Normal Saline Flush 0.9%) 10 ml IVP 0100,0900,1700 SUDHAKAR Sodium Chloride (Normal Saline Flush 0.9%) 10 ml IVP PRN PRN PRN Reason: NEEDED PER PROVIDER ORDERS Norethindrone-E.estradiol-Iron [Microgestin Fe 1-20 Tablet] 1 tab PO DAILY 10/13/17 Allergies/Adverse Reactions: Allergies Allergy/AdvReac Type Severity Reaction Status Date / Time No Known Drug Allergies Allergy Verified 08/28/19 01:11 Anes History & Medical History - Anesthetic History Anesthesia Complications: reports: No previous complications - Medical History Cardiovascular: reports: None Pulmonary: reports: None Gastrointestinal: reports: None Urinary: reports: None Neuro: reports: None Endocrine/Autoimmune: reports: None Smoking Status: Never smoker - Surgical History Gynecologic: Dilation and currettage Exam General: Alert Dental: WNL Mouth Opening: Greater than 4 Fingerbreadths Neck Mobility: Normal Mallampati classification: II Thyromental Distance: greater than 6 cm Respiratory: Lungs clear Cardiovascular: Regular rate Mental/Cognitive Status: Alert/Oriented X3 Plan Anesthesia Type: Spinal Consent for Procedure(s) Verified and Reviewed: Yes Code Status: Attempt Resuscitation ASA classification: 2-Mild systemic disease Is this case an emergency?: No
[2020-01-20 07:35] LABS: BASOPHILS % (AUTO) 0.3 %; EOSINOPHILS % (AUTO) 0.3 %; HGB - HEMOGLOBIN 12.5 g/dL (12.0-16.0); LYMPHOCYTES % (AUTO) 22.2 %; MEAN CORPUSCULAR HEMOGLOBIN 30.3 pg (27.0-31.0); MEAN CORPUSCULAR HGB CONC 33.5 g/dL (32.0-36.0); MEAN CORPUSCULAR VOLUME 90.5 fL (81.0-99.0); MONOCYTES # (AUTO) 0.7 10^3/uL (0.0-1.0); MONOCYTES % (AUTO) 7.4 %; NEUTROPHILS # (AUTO) 6.2 10^3/uL (1.5-6.6); NEUTROPHILS % (AUTO) 69.5 %; PLT - PLATELET COUNT 174 10^3/uL (130-450); RED BLOOD COUNT 4.12 10^6/uL (4.20-5.40); RED CELL DISTRIBUTION WIDTH 13.2 % (12.0-15.0); WHITE BLOOD COUNT 8.9 x10^3/uL (4.8-10.8)
[2020-01-20] MEDS ORDERED: LACTATED RINGERS 1,000 ML IV ONE ×2 (07:45→08:58)
[2020-01-20] MEDS ORDERED: LIDOCAINE 1%-EPI 1:100000 20 ML MDV SUBQ ONE ×2 (08:10)
[2020-01-20] MEDS ORDERED: PHENYLEPHRINE 20 MG in SODIUM CHLORIDE 0.9% 250 ML IV ONE (09:50)
[2020-01-20] MEDS ORDERED: SODIUM CHLORIDE FLUSH 0.9% 10 ML SYRINGE IVP PRN (11:00)
[2020-01-20] MEDS ORDERED: oxyCODONE 5 MG TABLET PO PRN (11:05)
[2020-01-20] MEDS ORDERED: HYDROCORTISONE 1% CREAM 28 GM TUBE PR PRN (11:05)
[2020-01-20] MEDS ORDERED: CARBOPROST TROMETHAMINE 250 MCG/ML AMP IM ONE (11:05)
[2020-01-20] MEDS ORDERED: ONDANSETRON 4 MG/2 ML VIAL IVP PRN (11:05)
[2020-01-20] MEDS ORDERED: WITCH HAZEL/GLYCERIN 1 PAD TOP PRN (11:05)
[2020-01-20] MEDS ORDERED: diphenhydrAMINE 25 MG CAPSULE PO PRN (11:05)
[2020-01-20] MEDS ORDERED: ONDANSETRON ODT 4 MG TABLET TL PRN (11:05)
[2020-01-20] MEDS ORDERED: OXYTOCIN/SODIUM CHLORIDE 500 ML IV PRN (11:05)
[2020-01-20] MEDS ORDERED: METHYLERGONOVINE 0.2 MG/ML VIAL IM PRN (11:05)
--- NOTE | 2020-01-20 11:16 | OPERATIVE REPORT ---
Operative Report - General Admit Date: 01/20/20 Planned Procedure: Scheduled primary low transverse Pre-Op Diagnosis: IUP at 39w0d, breech presentation Procedure Performed: Primary low transverse Post Op Diagnosis: Same, delivery of term gestation, and bicornuate uterus - Procedure Note Primary Surgeon: Sabrina Jones MD Secondary Surgeon: Emmanuel Romano MD Anesthesia Provider: Lady Downs CRNA Anesthesia Technique: Spinal Pathology: Placenta for routine discard IV Fluids (mL): 1,000 Estimated Blood Loss (mL): 500 Urine Output (mL): 450 Indications: Patient is a 24 yo at 39w0f with RAYSA 01/27/2020 here for schedule primary c- section for breech presentation. She underwent attempted ECV which was not successful. Confirmed vertex with bedside us prior to procedure. Risks/benefits/alternatives were reviewed. Written informed consent was obtained. Findings: Female in breech presentation. Apgars of 9/9. Weight pending. 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 Normal tubes and ovaries bilaterally. Complications: none - Other Other Information/Narrative: Risks benefits and alternatives of the procedure were discussed. Written informed consent was obtained. Patient was taken to the operating room where spinal anesthesia was placed and found to be adequate. She was prepped and draped in the usual sterile fashion in the dorsal supine position with a leftward tilt. Cross catheter was in place. SCDs were in place and activated. Cefazolin 2 g IV was given as a preoperative antibiotic. Preoperative timeout was performed. A total of 20 cc of 1% lidocaine with epinephrine was injected into the suture line prior to making the incision. A Pfannenstiel incision was made in the skin with a scalpel and carried through the underlying layer of fascia in a combination of sharp and blunt dissection. The fascia was incised in the midline, and the incision was extended laterally with the Heath scissors. The superior aspect of the fascial incision was grasped with the Alondra clamps, elevated, and the underlying rectus muscles were dissected off bluntly and sharply using the Heath scissors. Attention was then turned to the inferior aspect of the incision which in a similar fashion was grasped, tented up with Alondra clamps, and the underlying rectus muscles dissected off bluntly and sharply using Heath scissors. The rectus muscles were then in the midline. The peritoneum was identified, tented up, and entered bluntly. The peritoneal incision was extended superiorly and inferiorly with good visualization of the bladder. The bladder that blade was then inserted. A bladder flap was not created. The lower uterine segment of the uterus was identified, and incised in a transverse fashion with a scalpel. The uterus was entered bluntly. The uterine incision was extended in a craniocaudal fashion by manual stretch. The bladder blade was removed. The was delivered from from breech position wiht usual breech maneuvers. Baby was wrapped in a warm sterile towel. Delayed cord clamping was performed. After cessation of pulsations, the cord was clamped x2 and cut. The was handed off to the waiting pediatricians. The placenta was removed with manual expression. The uterus was NOT exteriorized. It was cleared of all clots clots and debris via manual swipe using Ray-Lori x2. The uterine incision was then repaired in a running locked fashion using 0 Vicryl suture. The incisoin was reinforced with a running imbricating layer again using 0-Vicryl suture. Excellent hemostasis was obtained. The gutters were cleared of all clots and debris. The pelvis was irrigated with warm normal saline. The uterine defect was well visualized in normal anatomic position it was noted again to be hemostatic. The peritoneum was then reapproximated with 2-0 Vicryl in a running fashion. The rectus muscles were then reapproximated using interrupted [id number] sutures using 2-0 Chromic. Good hemostasis was noted. The fascia was then closed using 0 Vicryl in a running fashion starting from the left lateral edge to the midline. A second suture was used to close the fascia in a running fashion starting from the right lateral edge and meeting in the midline, agian using 0-Vicryl. The subcutaneous tissue was then irrigated and closed using 2-0 chromic in a running subcutaneous suture. Skin was closed in a running subcuticular suture using 4-0 Monocryl. Steri-Strips were applied to reinforce the incsion and dressing was applied. Procedure was well-tolerated and without complication. Sponge lap and needle counts were correct x2. Patient was taken to recovery room in stable condition. Dr. Romano assisted with retraction, delivery of the infant, and closure of the incision.
[2020-01-20] MEDS: ACETAMINOPHEN 1,000 MG/100 ML 100 ML IV SCH ×2 (13:50→20:00)
[2020-01-20] MEDS: KETOROLAC 30 MG/ML VIAL IVP SCH ×2 (15:18→20:55)
[2020-01-20] MEDS: LACTATED RINGERS 1,000 ML IV SCH (18:51)
[2020-01-20] MEDS: DOCUSATE SODIUM 100 MG CAPSULE PO SCH (20:56)
[2020-01-21] MEDS: ACETAMINOPHEN 1,000 MG/100 ML 100 ML IV SCH (01:41)
[2020-01-21] MEDS: KETOROLAC 30 MG/ML VIAL IVP SCH (02:54)
[2020-01-21] MEDS: LACTATED RINGERS 1,000 ML IV SCH (03:25)
[2020-01-21 06:52] LABS: BASOPHILS % (AUTO) 0.2 %; EOSINOPHILS % (AUTO) 0.3 %; HGB - HEMOGLOBIN 9.6 g/dL (12.0-16.0); LYMPHOCYTES # (AUTO) 1.8 10^3/uL (1.5-3.5); LYMPHOCYTES % (AUTO) 20.7 %; MEAN CORPUSCULAR HEMOGLOBIN 29.4 pg (27.0-31.0); MEAN CORPUSCULAR HGB CONC 32.3 g/dL (32.0-36.0); MEAN CORPUSCULAR VOLUME 90.8 fL (81.0-99.0); MONOCYTES # (AUTO) 0.6 10^3/uL (0.0-1.0); MONOCYTES % (AUTO) 6.9 %; NEUTROPHILS # (AUTO) 6.1 10^3/uL (1.5-6.6); NEUTROPHILS % (AUTO) 71.6 %; PLT - PLATELET COUNT 151 10^3/uL (130-450); RED BLOOD COUNT 3.27 10^6/uL (4.20-5.40); RED CELL DISTRIBUTION WIDTH 13.4 % (12.0-15.0); WHITE BLOOD COUNT 8.6 x10^3/uL (4.8-10.8)
[2020-01-21] MEDS: ACETAMINOPHEN 500 MG TABLET PO SCH ×2 (08:34→15:33)
[2020-01-21] MEDS: IBUPROFEN 600 MG TABLET PO SCH ×3 (09:00→22:04)
[2020-01-21] MEDS ORDERED: IBUPROFEN 600 MG TABLET PO SCH (11:10)
[2020-01-21] MEDS ORDERED: IRON DEXTRAN 1,000 MG in SODIUM CHLORIDE 0.9% 250 ML IV ONE (14:47)
--- NOTE | 2020-01-21 14:47 | PROVIDER PROGRESS NOTE ---
Subjective - Prog Note Date Prog Note Date: 01/21/20 Prog Note Time: 14:46 - Subjective Subjective: POD 1 Feeling well. Pain controlled w ordered meds. Normal lochia. Voiding, ambulating, ruth reg diet. VSS afeb Abd soft, non-tender. Fundus firm below umbilicus. Incision D&I without induration or erythema A/P Stable Hgb 9.6; plan IV iron Planning Nexplanon, would like D provera for now. Expect DC home tomorrow. Objective - Vital Signs/Intake & Output Vital Signs: Vital Signs x48h Temp Pulse Resp BP 01/21/20 12:48 98.8 F 84 18 121/74 01/21/20 08:16 97.7 F 82 18 122/75 Intake & Output: Intake & Output 01/18/20 01/19/20 01/20/20 01/21/20 23:59 23:59 23:59 23:59 Intake Total 2160 1790.000 Output Total 1225 1125 Balance 935 665.000 - Lab Results Fish Bones: 01/21/20 06:30 Other Labs: Lab Results x24hrs 01/21/20 Range/Units 06:30 WBC 8.6 (4.8-10.8) x10^3/uL RBC 3.27 L (4.20-5.40) 10^6/uL Hgb 9.6 L (12.0-16.0) g/dL Hct 29.7 L (37.0-47.0) % MCV 90.8 (81.0-99.0) fL MCH 29.4 (27.0-31.0) pg MCHC 32.3 (32.0-36.0) g/dL RDW 13.4 (12.0-15.0) % Plt Count 151 (130-450) 10^3/uL MPV 11.0 H (7.9-10.8) fL Neut # (Auto) 6.1 (1.5-6.6) 10^3/uL Lymph # (Auto) 1.8 (1.5-3.5) 10^3/uL [place] # (Auto) 0.6 (0.0-1.0) 10^3/uL Eos # (Auto) 0.0 (0.0-0.7) 10^3/uL Baso # (Auto) 0.0 (0.0-0.1) 10^3/uL Absolute Nucleated RBC 0.00 x10^3/uL Nucleated RBC % 0.0 /100WBC
--- NOTE | 2020-01-21 15:15 | DISCHARGE SUMMARY ---
Discharge Summary Admit Date: 01/20/20 Discharging Provider: Melyssa Romano MD Code Status: Attempt Resuscitation Condition at Discharge: Good Discharge Disposition: 01 Home, Self Care - DIAGNOSES Admission Diagnoses: at 39 weeks, breech presentation - HPI History of Present Illness: 24yo now 1 who was admitted at 39 weeks for primary section secondary to breech presentation after failed ECV. - HOSPITAL COURSE Hospital Course: She underwent uncomplicated LTCS on 01/19 and was delivered of a 3476gm female apgars 9/9. A bicornuate uterus was noted at the time of surgery with the fetus in the left horn. Anatomy was otherwise normal. Her postop hgb was 9.6 and she was given 1000mg of iron dextran IV. She had an uncomplicated course. She is planning Nexplanon for contraception. - ALLERGIES Allergies/Adverse Reactions: Allergies Allergy/AdvReac Type Severity Reaction Status Date / Time No Known Drug Allergies Allergy Verified 08/28/19 01:11 - MEDICATIONS Home Medications: Ambulatory Orders Medication Instructions Recorded Confirmed Ibuprofen [Motrin] 600 mg PO Q6H PRN #30 tablet 01/22/20 oxyCODONE [Roxicodone] 5 mg PO Q4HR PRN #30 tablet 01/22/20 - PHYSICAL EXAM AT DISCHARGE General Appearance: positive: No acute distress, Alert Respiratory: positive: No respiratory distress Abdomen: positive: Non-tender, Other (fundus firm below umbilicus, incision D&I, no erythema) Skin: positive: Color nml, Warm, Dry Extremities: positive: Pedal edema (trace) Neurologic/Psychiatric: positive: Mood/affect nml - LABS Result Diagrams: 01/21/20 06:30
[2020-01-21] MEDS: DOCUSATE SODIUM 100 MG CAPSULE PO SCH (22:04)
--- NOTE | 2020-01-22 04:28 | PROVIDER PROGRESS NOTE ---
Subjective - Prog Note Date Prog Note Date: 01/22/20 Prog Note Time: 04:28 - Subjective Subjective: POD 2 Feeling well. Pain controlled. , minimal lochia. Ambulating, ruth reg diet. VSS afeb Abd soft, non-tender. Fundus firm below umbilicus. Incision D&I without erythema or induration. A/P Stable. Plan DC today. F/U in 2 weeks. Planning Nexplanon. Objective - Vital Signs/Intake & Output Vital Signs: Vital Signs x48h Temp Resp BP BP 01/22/20 02:00 98.1 F 117/76 121/79 01/22/20 01:15 16 131/77 H Intake & Output: Intake & Output 01/19/20 01/20/20 01/21/20 01/22/20 23:59 23:59 23:59 23:59 Intake Total 2160 3640.000 Output Total 1225 1125 Balance 935 2515.000 - Lab Results Fish Bones: 01/21/20 06:30 Other Labs: Lab Results x24hrs 01/21/20 Range/Units 06:30 WBC 8.6 (4.8-10.8) x10^3/uL RBC 3.27 L (4.20-5.40) 10^6/uL Hgb 9.6 L (12.0-16.0) g/dL Hct 29.7 L (37.0-47.0) % MCV 90.8 (81.0-99.0) fL MCH 29.4 (27.0-31.0) pg MCHC 32.3 (32.0-36.0) g/dL RDW 13.4 (12.0-15.0) % Plt Count 151 (130-450) 10^3/uL MPV 11.0 H (7.9-10.8) fL Neut # (Auto) 6.1 (1.5-6.6) 10^3/uL Lymph # (Auto) 1.8 (1.5-3.5) 10^3/uL [place] # (Auto) 0.6 (0.0-1.0) 10^3/uL Eos # (Auto) 0.0 (0.0-0.7) 10^3/uL Baso # (Auto) 0.0 (0.0-0.1) 10^3/uL Absolute Nucleated RBC 0.00 x10^3/uL Nucleated RBC % 0.0 /100WBC
[2020-01-22] MEDS ORDERED: LABETALOL 5 MG/1 ML 20 ML MDV IVP STA (04:31)
[2020-01-22] MEDS ORDERED: MAGNESIUM SULFATE 2 GRAM 2 GM/50 ML BAG IV SCH (05:00)
[2020-01-22] MEDS ORDERED: MAGNESIUM SULFATE IN WATER 20 GM/500 ML IV.SOLN IV SCH (05:00)
--- NOTE | 2020-01-22 05:15 | Discharge Plan ---
Discharge Plan Problem Reviewed?: Yes Disposition: Home, Self Care Condition: Good Prescriptions: oxyCODONE [Roxicodone] 5 mg PO Q4HR PRN #30 tablet PRN Reason: Pain Ibuprofen [Motrin] 600 mg PO Q6H PRN #30 tablet PRN Reason: Pain Diet: Regular Activity Restrictions: pelvic rest Shower Restrictions: No Driving Restrictions: No Additional Instructions or Follow Up instructions: Follow up in 2 weeks for incision check and Nexplanon placement No Smoking: If you smoke, Please STOP! Call for help.
[2020-01-22] MEDS: ACETAMINOPHEN 500 MG TABLET PO SCH (05:33)
[2020-01-22] MEDS: IBUPROFEN 600 MG TABLET PO SCH (05:34)
[2020-01-22] MEDS ORDERED: KETAMINE 500 MG/10 ML VIAL IVP ONE (09:50)
[2020-01-22] MEDS ORDERED: ONDANSETRON 4 MG/2 ML VIAL IVP ONE (09:50)
[2020-01-22] MEDS ORDERED: KETOROLAC 30 MG/ML VIAL IVP ONE (09:50)
[2020-01-22] MEDS ORDERED: fentaNYL 100 MCG/2 ML VIAL IVP ONE (09:50)
[2020-01-22] MEDS ORDERED: MORPHINE PF 5 MG/10 ML AMP EP ONE (09:50)
[2020-01-22] MEDS ORDERED: PROPOFOL 200 MG/20 ML VIAL IVP ONE (09:50)
[2020-01-22 10:31] VITALS: BP 122/79
--- NOTE | 2020-01-22 10:39 | Labor Flowsheet ---
Labor Flowsheet Datetime Report Generated by CPN: 01/22/2020 10:39 Datetime: 01/20/2020 10:59 VAGINAL EXAM Membranes Ruptured Date/Time: 01/20/2020 08:20 Membranes Rupture Method: Artificial Amniotic Fluid Color: Clear Amniotic Fluid Amount: Moderate Amniotic Fluid Odor: Normal
== END 2020-01-22 09:51 | disposition home or self-care (01) | DRG 788 ==
LOC: FBP 06:25
PROVIDERS: ADMIT Obstetrics & Gynecology; ATTEND Obstetrics & Gynecology
PROC: 10D00Z1 Extraction of Products of Conception, Low, Open Approach (ICD-10-PCS; principal; 2020-01-20 07:30)
DX: O32.1XX0 Maternal care for breech presentation, not applicable or unspecified (principal); O34.03 Maternal care for unspecified congenital malformation of uterus, third trimester; Q51.3 Bicornate uterus; Z37.0 Single live birth; Z3A.39 39 weeks gestation of pregnancy
CPT/HCPCS: 36415; 85025; 86850; 86900; 86901; A9270; J0131; J1750; J7120

== ENCOUNTER 2020-01-31 15:35 | Observation (INO) | payer OTHER ==
--- NOTE | 2020-01-31 16:09 | ED Physician Documentation ---
PD HPI ABD PAIN - Stated complaint Stated Complaint: POST COMPLICATIONS - Chief complaint Chief Complaint: Wound - History obtained from History obtained from: Patient - History of Present Illness Timing - onset: How many days ago (2-3) Timing - duration: Days (2-3 days increasing lower abd pain and tenderness in area of C-Sec incision. No drainage. Some redness. Feverish yesterday into today.) Timing - details: Gradual onset, Still present Quality: Aching, Pain Location: Suprapubic Improved by: No: Eating Worsened by: No: Eating Associated symptoms: Fever, Nausea, Vaginal bleeding (mild since c-sec and decreasing without purulence.). No: Vomiting, Diarrhea Recently seen: Surgery (Had for persistent breech presentation without complications. Discharged home and is breast feeding without problems. Has had few days of incisional area swelling, tender and red, without discahrge. Now with fevers since last night into today.) Review of Systems Constitutional: reports: Fever, Myalgias. denies: Chills Nose: denies: Rhinorrhea / runny nose, Congestion Throat: denies: Sore throat Respiratory: denies: Dyspnea GI: reports: Abdominal Pain, Nausea. 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 - Present Medications Home Medications: Ambulatory Orders Medication Instructions Recorded Confirmed Ibuprofen [Motrin] 600 mg PO Q6H PRN #30 tablet 01/22/20 oxyCODONE [Roxicodone] 5 mg PO Q4HR PRN #30 tablet 01/22/20 - Allergies Allergies/Adverse Reactions: Allergies Allergy/AdvReac Type Severity Reaction Status Date / Time No Known Drug Allergies Allergy Verified 01/31/20 15:45 - Social History Does the pt smoke?: No Smoking Status: Never smoker Does the pt drink ETOH?: No Does the pt have substance abuse?: No - Immunizations Immunizations are current?: Yes - POLST Patient has POLST: No PD ED PE NORMAL - Vitals Vital signs reviewed: Yes - General General: Alert and oriented X 3, No acute distress, Well developed/nourished - HEENT HEENT: Pharynx benign - Neck Neck: Supple, no meningeal sign, No adenopathy - Cardiac Cardiac: RRR, No murmur - Respiratory Respiratory: Clear bilaterally, Other (mild tenderness right lateral breast with notable redness. ) - Abdomen Abdomen: Normal bowel sounds, Soft, Non distended, No organomegaly, Other (The incision is still closed. There is redness around the edges and some firmness and induration along the mid to right side without any noted fluctuance. This area of induration does extend beyond just the area of the incision. Pelvic exam was deferred to gynecology.) - Female Female : Deferred - Derm Derm: Normal color, Warm and dry - Extremities Extremities: Normal ROM s pain, No edema, No calf tenderness / cord - Neuro Neuro: Alert and oriented X 3, No motor deficit, No sensory deficit Results - Vitals Vitals: Vital Signs - 24 hr 01/31/20 01/31/20 01/31/20 15:40 16:21 17:17 Temperature 36.5 C 39.4 C H Heart Rate 133 H 119 H 107 H Respiratory 18 16 18 Rate Blood Pressure 132/92 H 140/101 H 131/93 H O2 Saturation 99 99 100 01/31/20 19:00 Temperature 37.1 C Heart Rate 86 Respiratory 18 Rate Blood Pressure 120/87 H O2 Saturation 98 Oxygen O2 Source Room air - Labs Labs: Laboratory Tests 01/31/20 01/31/20 01/31/20 16:03 16:50 16:50 WBC 13.1 H RBC 3.99 L Hgb 12.3 Hct 36.2 L MCV 90.7 MCH 30.8 MCHC 34.0 RDW 13.4 Plt Count 242 MPV 9.8 Neut # (Auto) 11.5 H Lymph # (Auto) 0.9 L [place] # (Auto) 0.5 Eos # (Auto) 0.1 Baso # (Auto) 0.0 Absolute Nucleated RBC 0.00 Nucleated RBC % 0.0 Sodium 135 Potassium 3.9 Chloride 99 L Carbon Dioxide 23 Anion Gap 13.0 BUN 9 Creatinine 0.7 Estimated GFR (MDRD) 105 Glucose 88 Lactic Acid Calcium 8.9 Magnesium 1.8 Total Bilirubin 0.8 AST 28 ALT 33 Alkaline Phosphatase 71 Total Protein 7.9 Albumin 3.8 Globulin 4.1 Albumin/Globulin Ratio 0.9 L Lipase 26 Urine Color YELLOW Urine Clarity CLOUDY Urine pH 6.5 Ur Specific [place] 1.010 Urine Protein TRACE Urine Glucose (UA) NEGATIVE Urine Ketones NEGATIVE Urine Occult Blood SMALL H Urine Nitrite NEGATIVE Urine Bilirubin NEGATIVE Urine Urobilinogen 0.2 (NORMAL) Ur Leukocyte Esterase SMALL H Urine RBC 0-5 Urine WBC 6-10 H Ur Squamous Epith Cells FEW Squamous Urine Bacteria Few Ur Microscopic Review INDICATED Urine Culture Comments INDICATED 01/31/20 16:50 WBC RBC Hgb Hct MCV MCH MCHC RDW Plt Count MPV Neut # (Auto) Lymph # (Auto) [place] # (Auto) Eos # (Auto) Baso # (Auto) Absolute Nucleated RBC Nucleated RBC % Sodium Potassium Chloride Carbon Dioxide Anion Gap BUN Creatinine Estimated GFR (MDRD) Glucose Lactic Acid 1.0 Calcium Magnesium Total Bilirubin AST ALT Alkaline Phosphatase Total Protein Albumin Globulin Albumin/Globulin Ratio Lipase Urine Color Urine Clarity Urine pH Ur Specific [place] Urine Protein Urine Glucose (UA) Urine Ketones Urine Occult Blood Urine Nitrite Urine Bilirubin Urine Urobilinogen Ur Leukocyte Esterase Urine RBC Urine WBC Ur Squamous Epith Cells Urine Bacteria Ur Microscopic Review Urine Culture Comments - Rads (name of study) abd CT Radiology: Prelim report reviewed (Inflammatory changes in the subcutaneous area of the wound. No local fluid collections. The uterus appears slightly enlarged consistent with the state. No free fluid.), See rad report PD MEDICAL DECISION MAKING - ED course Complexity details: considered differential (The patient is having now swelling tenderness and some redness around the site. She is having fevers and did go to 39.1 temperature here on arrival. We will look for signs of abscess with a CT scan. Consider endometritis as well but at this point will defer to gynecology for pelvic exam. There is a slight redness around the right breast but not a significant notable mastitis.), d/w patient, d/w alliance consultant (Fidel, [employer] avionics integration engineer, who came to ER and saw the patient. ) Departure - Departure Disposition: ED Place in Observation Clinical Impression: Abdominal wall pain, Abdominal wall cellulitis, Status post delivery Fever Qualifiers: Fever type: unspecified Qualified Code(s): R50.9 - Fever, unspecified Condition: Stable Record reviewed to determine appropriate education?: Yes Discharge Date/Time: 01/31/20 19:40
[2020-01-31 16:19] LABS: BILIRUBIN,URINE NEGATIVE (NEGATIVE); GLUCOSE, URINE (UA) NEGATIVE (NEGATIVE); KETONES,URINE (UA) NEGATIVE (NEGATIVE); LEUKOCYTE ESTERASE, URINE SMALL (NEGATIVE); NITRITE,URINE NEGATIVE (NEGATIVE); OCCULT BLOOD,URINE SMALL (NEGATIVE); PH,URINE 6.5 PH (5.0-7.5); PROTEIN,URINE TRACE mg/dL (NEGATIVE); UROBILINOGEN,URINE 0.2 (NORMAL) E.U./dL (NORMAL)
[2020-01-31 16:25] LABS: CLARITY,URINE CLOUDY (CLEAR)
[2020-01-31 16:32] LABS: BACTERIA,URINE Few /HPF (None Seen); RBC,URINE 0-5 /HPF (0-5); SQUAMOUS EPITHELIAL CELL,UR FEW Squamous (<= Few)
[2020-01-31] MEDS ORDERED: SODIUM CHLORIDE 0.9% 1,000 ML IV STA (16:53)
[2020-01-31] MEDS ORDERED: KETOROLAC 15 MG/ML VIAL IVP STA (16:53)
[2020-01-31] MEDS ORDERED: ACETAMINOPHEN 325 MG TABLET PO STA (16:54)
[2020-01-31] MEDS ORDERED: MORPHINE 2 MG/ML CARPUJECT IVP STA (16:54)
[2020-01-31] MEDS ORDERED: CLINDAMYCIN 600 MG/50 ML 50 ML IV ONE (16:54)
[2020-01-31] MEDS ORDERED: cefTRIAXone 1 GM VIAL IVP STA (16:54)
[2020-01-31 17:05] LABS: BASOPHILS % (AUTO) 0.3 %; EOSINOPHILS # (AUTO) 0.1 10^3/uL (0.0-0.7); EOSINOPHILS % (AUTO) 0.4 %; HGB - HEMOGLOBIN 12.3 g/dL (12.0-16.0); LYMPHOCYTES # (AUTO) 0.9 10^3/uL (1.5-3.5); LYMPHOCYTES % (AUTO) 7.2 %; MEAN CORPUSCULAR HEMOGLOBIN 30.8 pg (27.0-31.0); MEAN CORPUSCULAR VOLUME 90.7 fL (81.0-99.0); MEAN PLATELET VOLUME 9.8 fL (7.9-10.8); MONOCYTES # (AUTO) 0.5 10^3/uL (0.0-1.0); MONOCYTES % (AUTO) 3.4 %; NEUTROPHILS # (AUTO) 11.5 10^3/uL (1.5-6.6); NEUTROPHILS % (AUTO) 88.2 %; PLT - PLATELET COUNT 242 10^3/uL (130-450); RED BLOOD COUNT 3.99 10^6/uL (4.20-5.40); RED CELL DISTRIBUTION WIDTH 13.4 % (12.0-15.0); WHITE BLOOD COUNT 13.1 x10^3/uL (4.8-10.8)
[2020-01-31 17:20] LABS: ALBUMIN 3.8 g/dL (3.2-5.5); ALBUMIN/GLOBULIN RATIO 0.9 (1.0-2.2); BILIRUBIN,TOTAL 0.8 mg/dL (0.2-1.0); CALCIUM 8.9 mg/dL (8.5-10.3); CREATININE 0.7 mg/dL (0.4-1.0); MAGNESIUM 1.8 mg/dL (1.7-2.8); TOTAL PROTEIN 7.9 g/dL (6.7-8.2)
[2020-01-31] MEDS ORDERED: IOVERSOL 320 100 ML VIAL IVP ONE ×2 (17:37→18:42)
--- NOTE | 2020-01-31 19:00 | CT Report ---
Reason: post pain and swelling abd soft tissue Procedure Date: 01/31/2020 Accession Number: [id number] / [id number] Procedure: CT - Abdomen/Pelvis W CPT Code: Final Report FULL RESULT: EXAM: CT ABDOMEN AND PELVIS EXAM DATE: 01/31/2020 06:02 PM. CLINICAL HISTORY: pain and swelling abdomen soft tissue. section 11 days ago. Abdominal pain and redness at site of incision. Fever. COMPARISONS: None. TECHNIQUE: Routine helical CT imaging was performed through the abdomen and pelvis. IV contrast: 90 cc of Optiray 320. Enteric contrast: No. Reconstructions: Coronal and sagittal. In accordance with CT protocol optimization, one or more of the following dose reduction techniques were utilized for this exam: automated exposure control, adjustment of mA and/or KV based on patient size, or use of iterative reconstructive technique. FINDINGS: Lung Bases: Unremarkable. Liver: Normal. No masses. Gallbladder/Bile Ducts: Unremarkable. Spleen: Spleen upper normal in size. Pancreas: Normal. Adrenal Glands: Normal. Kidneys: Symmetric renal enhancement. 5 mm low-attenuation lesion anterior mid left kidney, too small to characterize. No hydronephrosis. Peritoneal Cavity/Bowel: Stomach is nondistended. No small bowel obstruction. Fatty umbilical hernia. Diastases of the anterior abdominal wall. No small bowel wall thickening. Small volume of stool in the colon. No diverticulitis. No free air. No intra-abdominal fluid collections. Appendix not well visualized. No pericecal inflammatory changes. Pelvic Organs: Urinary bladder is mildly distended and unremarkable. Trace pelvic free fluid. Uterus is enlarged and mildly heterogeneous, likely related to state. No pelvic adenopathy. Linear soft tissue stranding and mild subcutaneous edema seen along the anterior pelvic soft subcutaneous tissues with some thickening of the rectus musculature. No evidence for subcutaneous or intramuscular fluid collection. Vasculature: No aneurysms or other significant abnormality. Bones: No significant abnormality. Other: None. IMPRESSION: 1. Uterine enlargement and uterine heterogeneity consistent with state. No air/gas is seen within the uterus specifically the endometrium. 2. Mild subcutaneous stranding and edema along the anterior pelvic subcutaneous tissues and slight thickening of the rectus musculature at the site of section. No subcutaneous, intramuscular, or intra-abdominal/pelvic fluid collections. 3. Trace pelvic free fluid. 4. Appendix not distinctly visualized. No pericecal inflammatory changes. No bowel obstruction. 5. No nephrolithiasis. No hydronephrosis. No CT evidence of pyelonephritis. RADIA
[2020-01-31] MEDS ORDERED: ONDANSETRON 4 MG/2 ML VIAL IVP PRN (19:14)
[2020-01-31] MEDS ORDERED: diphenhydrAMINE 25 MG CAPSULE PO PRN (19:14)
[2020-01-31] MEDS ORDERED: oxyCODONE 5 MG TABLET PO PRN (19:14)
[2020-01-31] MEDS ORDERED: SODIUM CHLORIDE FLUSH 0.9% 10 ML SYRINGE IVP PRN (19:14)
--- NOTE | 2020-01-31 19:44 | HISTORY & PHYSICAL EXAMINATION ---
DATE OF SERVICE: 01/31/2020 Physician: Isaiah Parra MD IDENTIFICATION: Patient is a 24-year-old G1, P1 female who delivered on 01/20/2020 a secondary to persistent breech presentation. HISTORY OF PRESENT ILLNESS: Her postoperative course was unremarkable. She went home on the second day . She received prophylactic antibiotics at time of section. She states yesterday she started feeling poorly and developed a low-grade temperature. She states the predominant area of discomfort was in the incisional area. She states her lochia has been drying up at this particular time. This afternoon, she developed a temperature of 100.4, and for this reason presented to our ED. Upon arrival here, she had a temperature of 36.5, but spiked to 39.4. Her vital signs were normal otherwise. Respiratory rate was running 16-18, saturation was 99%-100%. Upon further questioning, she states the predominant area of discomfort is at the incisional site. PAST MEDICAL HISTORY: Patient denies any hypertension, diabetic, cardiac, or pulmonary disease. PAST SURGICAL HISTORY: Positive for a primary 11 days ago, as well as a breast biopsy for a lump several years ago. ALLERGIES: NONE KNOWN. CURRENT MEDICATIONS 1. Motrin. 2. Vitamins. HABITS: Patient denies use of alcohol, tobacco, street or addictive drugs or marijuana. SOCIAL HISTORY: Patient is and lives with her spouse, who is active duty [employer]. PHYSICAL EXAMINATION GENERAL: Patient is a well-developed, well-nourished female. She appears to be in mild distress at this time. She is feeling achy all over. skin is moist and warm. VITAL SIGNS: At 1600 were are 39.4, heart rate 119, blood pressure 140/105, this has decreased to 120/78; respirations are 16, oxygen saturation is 99 on room air. HEENT: Pupils are equal, round. Extraocular muscles are intact. Thyroid is not palpably enlarged. HEART: Regular rate and rhythm without murmurs. LUNGS: Lung tony are clear without rales or wheezes. ABDOMEN: Healing Pfannenstiel incision with minimal erythema and some mild tenderness above the incision. The uterus was palpated roughly 3 cm below the umbilicus. Internal examination shows a mildly tender uterus. BACK: No spinal or CVA tenderness noted. BREASTS: Somewhat firm as she is not breastfed recently. There is some mild erythema on the right breast from about 2 o'clock to 3 o'clock. This is minimally tender. LABORATORY/DATA CBC shows a white count of 13.1, hemoglobin 12.3, hematocrit 26.2, platelets 242. Neutrophils were high at 11.5. Lymphs were low at 0.9. CT showed some mild striation at the incision site. The uterus itself was mildly enlarged as expected. There is no evidence of obvious fluid collections at this time. There is evidence of good flow from the kidneys at this point. IMPRESSION 1. A 24-year-old 1, para 1, eleven days status post section for breech presentation. 2. Fever with leukocytosis, as well as incisional tenderness, as well as some breast erythema on the right breast. Fever of unknown origin; this is probably a mastitis versus an incisional infection. Endometritis is doubtful at this time. PLAN: Patient has had blood cultures drawn. She has received Rocephin as well as clindamycin. We will give her IV antibiotics and discharge when she is 24-48 hours afebrile. TD: 01/31/2020 19:15 [facility]
[2020-01-31] MEDS ORDERED: LACTATED RINGERS 1,000 ML IV SCH (20:00)
[2020-01-31] MEDS ORDERED: LACTATED RINGERS 1,000 ML IV ONE (20:06)
[2020-01-31] MEDS: SODIUM CHLORIDE FLUSH 0.9% 10 ML SYRINGE IVP SCH (22:55)
[2020-01-31] MEDS: CLINDAMYCIN 600 MG/50 ML 50 ML IV SCH (22:56)
[2020-01-31] MEDS: SIMETHICONE CHEW 80 MG TABLET PO SCH (22:56)
[2020-01-31] MEDS: DOCUSATE SODIUM 100 MG CAPSULE PO SCH (22:56)
[2020-02-01] MEDS: IBUPROFEN 600 MG TABLET PO SCH ×3 (00:52→13:00)
[2020-02-01] MEDS: ACETAMINOPHEN 500 MG TABLET PO SCH ×3 (00:53→13:00)
[2020-02-01] MEDS: CLINDAMYCIN 600 MG/50 ML 50 ML IV SCH (05:02)
[2020-02-01 05:37] LABS: BASOPHILS % (AUTO) 0.5 %; EOSINOPHILS # (AUTO) 0.3 10^3/uL (0.0-0.7); EOSINOPHILS % (AUTO) 3.2 %; LYMPHOCYTES # (AUTO) 1.5 10^3/uL (1.5-3.5); LYMPHOCYTES % (AUTO) 17.8 %; MEAN CORPUSCULAR HEMOGLOBIN 30.9 pg (27.0-31.0); MEAN CORPUSCULAR HGB CONC 33.7 g/dL (32.0-36.0); MEAN CORPUSCULAR VOLUME 91.6 fL (81.0-99.0); MEAN PLATELET VOLUME 9.4 fL (7.9-10.8); MONOCYTES # (AUTO) 0.4 10^3/uL (0.0-1.0); MONOCYTES % (AUTO) 4.7 %; NEUTROPHILS # (AUTO) 6.1 10^3/uL (1.5-6.6); NEUTROPHILS % (AUTO) 73.3 %; PLT - PLATELET COUNT 207 10^3/uL (130-450); RED BLOOD COUNT 3.56 10^6/uL (4.20-5.40); RED CELL DISTRIBUTION WIDTH 13.7 % (12.0-15.0); WHITE BLOOD COUNT 8.4 x10^3/uL (4.8-10.8)
--- NOTE | 2020-02-01 09:30 | PROVIDER PROGRESS NOTE ---
Subjective - Prog Note Date Prog Note Date: 02/01/20 Prog Note Time: 09:28 - Subjective Pt reports feeling: Improved (Pt pain 10/17. yesterday 12/15 felt achy. breast feeding. Good milk supply.) Objective - Vital Signs/Intake & Output Reviewed Vital Signs: Yes Vital Signs: Vital Signs x48h Temp Pulse Resp BP BP Pulse Ox 02/01/20 07:57 36.4 C L 76 17 110/64 100 02/01/20 05:00 36.8 C 77 14 107/69 98 Intake & Output: Intake & Output 01/29/20 01/30/20 01/31/20 02/01/20 23:59 23:59 23:59 23:59 Intake Total 1325 Balance 1325 - Objective General Appearance: positive: No acute distress (Pt appears bright and moving easly.), Alert Abdomen: positive: Non-tender (incision without erythema.), Tenderness (minimal on the uterus.), Mass (U-3) Back: negative: CVA tenderness (R), CVA tenderness (L) Skin: positive: Warm, Dry, Other (Breasts lactating. right breast at 0200 minimal erythema improving. minimal tenderness.) - Lab Results Fish Bones: 02/01/20 05:25 01/31/20 16:50 Other Labs: Lab Results x24hrs 02/01/20 01/31/20 01/31/20 Range/Units 05:25 16:50 16:50 WBC 8.4 (4.8-10.8) x10^3/uL RBC 3.56 L (4.20-5.40) 10^6/uL Hgb 11.0 L (12.0-16.0) g/dL Hct 32.6 L (37.0-47.0) % MCV 91.6 (81.0-99.0) fL MCH 30.9 (27.0-31.0) pg MCHC 33.7 (32.0-36.0) g/dL RDW 13.7 (12.0-15.0) % Plt Count 207 (130-450) 10^3/uL MPV 9.4 (7.9-10.8) fL Neut # (Auto) 6.1 (1.5-6.6) 10^3/uL Lymph # (Auto) 1.5 (1.5-3.5) 10^3/uL [place] # (Auto) 0.4 (0.0-1.0) 10^3/uL Eos # (Auto) 0.3 (0.0-0.7) 10^3/uL Baso # (Auto) 0.0 (0.0-0.1) 10^3/uL Absolute Nucleated RBC 0.00 x10^3/uL Nucleated RBC % 0.0 /100WBC Sodium 135 (135-145) mmol/L Potassium 3.9 (3.5-5.0) mmol/L Chloride 99 L (101-111) mmol/L Carbon Dioxide 23 (21-32) mmol/L Anion Gap 13.0 (6-13) BUN 9 (6-20) mg/dL Creatinine 0.7 (0.4-1.0) mg/dL Estimated GFR (MDRD) 105 (>89) Glucose 88 (70-100) mg/dL Lactic Acid 1.0 (0.5-2.2) mmol/L Calcium 8.9 (8.5-10.3) mg/dL Magnesium 1.8 (1.7-2.8) mg/dL Total Bilirubin 0.8 (0.2-1.0) mg/dL AST 28 (10-42) IU/L ALT 33 (10-60) IU/L Alkaline Phosphatase 71 (42-121) IU/L Total Protein 7.9 (6.7-8.2) g/dL Albumin 3.8 (3.2-5.5) g/dL Globulin 4.1 (2.1-4.2) g/dL Albumin/Globulin Ratio 0.9 L (1.0-2.2) Lipase 26 (22-51) U/L Urine Color Urine Clarity (CLEAR) Urine pH (5.0-7.5) PH Ur Specific [place] (1.002-1.030) Urine Protein (NEGATIVE) mg/dL Urine Glucose (UA) (NEGATIVE) mg/dL Urine Ketones (NEGATIVE) mg/dL Urine Occult Blood (NEGATIVE) Urine Nitrite (NEGATIVE) Urine Bilirubin (NEGATIVE) Urine Urobilinogen (NORMAL) E.U./dL Ur Leukocyte Esterase (NEGATIVE) Urine RBC (0-5) /HPF Urine WBC (0-5) /HPF Ur Squamous Epith Cells (<= Few) Urine Bacteria (None Seen) /HPF Ur Microscopic Review Urine Culture Comments 01/31/20 01/31/20 Range/Units 16:50 16:03 WBC 13.1 H (4.8-10.8) x10^3/uL RBC 3.99 L (4.20-5.40) 10^6/uL Hgb 12.3 (12.0-16.0) g/dL Hct 36.2 L (37.0-47.0) % MCV 90.7 (81.0-99.0) fL MCH 30.8 (27.0-31.0) pg MCHC 34.0 (32.0-36.0) g/dL RDW 13.4 (12.0-15.0) % Plt Count 242 (130-450) 10^3/uL MPV 9.8 (7.9-10.8) fL Neut # (Auto) 11.5 H (1.5-6.6) 10^3/uL Lymph # (Auto) 0.9 L (1.5-3.5) 10^3/uL [place] # (Auto) 0.5 (0.0-1.0) 10^3/uL Eos # (Auto) 0.1 (0.0-0.7) 10^3/uL Baso # (Auto) 0.0 (0.0-0.1) 10^3/uL Absolute Nucleated RBC 0.00 x10^3/uL Nucleated RBC % 0.0 /100WBC Sodium (135-145) mmol/L Potassium (3.5-5.0) mmol/L Chloride (101-111) mmol/L Carbon Dioxide (21-32) mmol/L Anion Gap (6-13) BUN (6-20) mg/dL Creatinine (0.4-1.0) mg/dL Estimated GFR (MDRD) (>89) Glucose (70-100) mg/dL Lactic Acid (0.5-2.2) mmol/L Calcium (8.5-10.3) mg/dL Magnesium (1.7-2.8) mg/dL Total Bilirubin (0.2-1.0) mg/dL AST (10-42) IU/L ALT (10-60) IU/L Alkaline Phosphatase (42-121) IU/L Total Protein (6.7-8.2) g/dL Albumin (3.2-5.5) g/dL Globulin (2.1-4.2) g/dL Albumin/Globulin Ratio (1.0-2.2) Lipase (22-51) U/L Urine Color YELLOW Urine Clarity CLOUDY (CLEAR) Urine pH 6.5 (5.0-7.5) PH Ur Specific [place] 1.010 (1.002-1.030) Urine Protein TRACE (NEGATIVE) mg/dL Urine Glucose (UA) NEGATIVE (NEGATIVE) mg/dL Urine Ketones NEGATIVE (NEGATIVE) mg/dL Urine Occult Blood SMALL H (NEGATIVE) Urine Nitrite NEGATIVE (NEGATIVE) Urine Bilirubin NEGATIVE (NEGATIVE) Urine Urobilinogen 0.2 (NORMAL) (NORMAL) E.U./dL Ur Leukocyte Esterase SMALL H (NEGATIVE) Urine RBC 0-5 (0-5) /HPF Urine WBC 6-10 H (0-5) /HPF Ur Squamous Epith Cells FEW Squamous (<= Few) Urine Bacteria Few (None Seen) /HPF Ur Microscopic Review INDICATED Urine Culture Comments INDICATED Assessment/Plan - Problem List (1) Mastitis during puerperium Impression: Improving both symptomatic and physical findings. white count and shift left resolved. Fever resolved. Change to dicloxicillin 500 qid for 7 days anticipate Discharge to home in the afternoon (2) Status post delivery Impression: incision healing well without signs of infection.
[2020-02-01] MEDS: DOCUSATE SODIUM 100 MG CAPSULE PO SCH ×2 (09:38→10:07)
[2020-02-01] MEDS: SIMETHICONE CHEW 80 MG TABLET PO SCH ×3 (09:40→14:00)
--- NOTE | 2020-02-01 11:02 | PHARMACY PROGRESS NOTE ---
- Best Possible Medication History Admit Date and Time: 01/31/201913 Processed by: Pharmacy Medication History completed: Yes Patient Interview: Completed Secondary Source(s): Pharmacy records, Insurance records As the person ultimately responsible for medication therapy, providers are able to order a medication from an existing home medication list in [facility] via the "Reconcile Routine" prior to Confirmation of that medication by systems support officer. Such practice is discouraged except when the physician, in their clinical judgment, deems that a medical need exists for a medication without regard to previous use.
[2020-02-01] MEDS: DICLOXACILLIN 250 MG CAPSULE PO SCH ×2 (11:11→16:43)
[2020-02-01] MEDS: SODIUM CHLORIDE FLUSH 0.9% 10 ML SYRINGE IVP SCH (11:16)
[2020-02-01 14:50] VITALS: BP 120/70
[2020-02-01] MEDS ORDERED: cefTRIAXone 1 GM in SODIUM CHLORIDE 0.9% MINIBAG 100 ML IV SCH (17:30)
== END 2020-02-01 16:50 | disposition home or self-care (01) ==
LOC: ED 15:35 → OBS 19:14
PROVIDERS: ADMIT Obstetrics & Gynecology; ATTEND Obstetrics & Gynecology
DX: O91.23 Nonpurulent mastitis associated with lactation (principal)
CPT/HCPCS: 36415; 74177; 80053; 81001; 83605; 83690; 83735; 85025; 87040; 87086; 96365; 96366; 96375; 99284; 99285; A9270; G0378; J7120; Q9967; 81003